=== PATIENT | female | born 1995 | race Caucasian/White ===

== ENCOUNTER 2021-03-15 12:51 | Emergency (ER) | payer SELFPAY ==
[~2021-03-15] VITALS: Ht 154.9 cm; Wt 78.9 kg
--- NOTE | 2021-03-15 13:10 | NUR ---
URINE SPECIMEN COLLECTED AND SENT TO LAB.
--- NOTE | 2021-03-15 14:01 | NUR ---
DR KUHN AT BEDSIDE
[2021-03-15 14:18] LABS: HEMATOCRIT 37 % (33-45); HEMOGLOBIN 11.9 g/dL (11.5-14.8); LYMPHOCYTES # (AUTO) 1.1 K/uL (0.8-4.8); LYMPHOCYTES % (AUTO) 7.4 % (20.0-44.0); MEAN CORPUSCULAR HGB CONC 33 g/dl (31.0-36.0); MEAN CORPUSCULAR VOLUME 89 fL (82-100); MONOCYTES # (AUTO) 0.6 K/uL (0.1-1.30); MONOCYTES % (AUTO) 4.1 % (2.0-12.0); NEUTROPHILS # (AUTO) 13.4 K/uL (1.8-8.9); NEUTROPHILS % (AUTO) 88.5 % (43.0-81.0); PLATELET COUNT (AUTO) 373 K/uL (150-450); WHITE BLOOD COUNT (AUTO) 15.1 K/uL (4.3-11.0)
[2021-03-15 14:34] LABS: CALCIUM, SERUM 9.2 mg/dL (8.5-10.1); POTASSIUM 3.9 mmol/L (3.5-5.1)
[2021-03-15 14:35] LABS: BILIRUBIN,URINE NEGATIVE (NEGATIVE); COLOR,URINE YELLOW (YELLOW); LEUKOCYTE ESTERASE ,URINE NEGATIVE (NEGATIVE); NITRITE, URINE NEGATIVE (NEGATIVE); PROTEIN,URINE NEGATIVE (NEGATIVE); UGLUCOSE NEGATIVE (NEGATIVE); UROBILINOGEN,URINE 0.2 EU/dL (0.2)
[2021-03-15 14:40] LABS: ALBUMIN 3.8 g/dL (3.4-5.0); BILIRUBIN,DIRECT 0.1 mg/dL (0.0-0.2); BILIRUBIN,TOTAL 0.2 mg/dL (0.2-1.0); TOTAL PROTEIN, SERUM 7.5 g/dL (6.4-8.2)
--- NOTE | 2021-03-15 14:49 | NUR ---
DR ROYAL AT BEDSIDE
[2021-03-15 14:57] LABS: BACTERIA,URINE Few /HPF (None Seen); SQUAMOUS EPITHELIAL CELL,UR Few /HPF (None Seen); URINE AMORPHOUS URATE Few /HPF (None Seen); WBC,URINE 0-2 /HPF (0-3)
[2021-03-15] MEDS ORDERED: IOHEXOL-300 100 ML VIAL IV ONE (15:03)
[2021-03-15 15:05] LABS: OCCULT BLOOD STOOL NEGATIVE (NEGATIVE)
--- NOTE | 2021-03-15 15:15 | NUR ---
PATIENT WHEELED BACK TO ROOM VIA WHEELCHAIR FROM CT SCAN
[2021-03-15] MEDS ORDERED: ONDA4TAB5 PO (15:19)
[2021-03-15] MEDS ORDERED: FAMO-131 PO (15:19)
[2021-03-15] MEDS ORDERED: IV NS 0.9% 1,000 ML IV ONE (15:30)
[2021-03-15] MEDS ORDERED: LIDOCAINE VISCOUS 2% UD 15 ML UDC MM ONE (15:30)
[2021-03-15] MEDS ORDERED: FAMOTIDINE/PF INJ 20 MG/2 ML VIAL IV ONE (15:30)
[2021-03-15] MEDS ORDERED: ONDANSETRON HCL/PF 4 MG/2 ML VIAL IV ONE (15:30)
[2021-03-15] MEDS ORDERED: MAG HYDROX/AL HYDROX/SIMETH 30 ML UDC PO ONE (15:30)
[2021-03-15] MEDS ORDERED: ONDANSETRON HCL/PF 4 MG/2 ML VIAL ONE (15:47)
[2021-03-15] MEDS ORDERED: FAMO20TA80 PO (16:13)
[2021-03-15] MEDS ORDERED: ONDA4TAB11 PO (16:13)
--- NOTE | 2021-03-15 17:10 | NUR ---
IV removed. Catheter intact and site benign. Pressure and 4x4 applied to site. No bleeding noted.Patient discharged to home in stable condition. Written and verbal after care instructions given. Patient verbalizes understanding of instruction.
[2021-03-15 17:16] VITALS: BP 126/69
== END 2021-03-15 17:16 | disposition home or self-care (01) ==
LOC: ER 12:54
DX: K57.32 Diverticulitis of large intestine without perforation or abscess without bleeding (principal); J45.909 Unspecified asthma, uncomplicated; G89.29 Other chronic pain; Z88.6 Allergy status to analgesic agent
CPT/HCPCS: 36415; 74177; 80048; 80076; 81001; 82272; 83690; 84703; 85025; 96361; 96374; 96375; 99285; J2405; J7030; Q9967